=== PATIENT | male | born 1970 | race Caucasian/White ===

== ENCOUNTER 2017-10-21 19:54 | Emergency (ER) | payer SELFPAY ==
[~2017-10-21] VITALS: Ht 188 cm; Wt 90.1 kg
[2017-10-21 20:11] VITALS: BP 179/102; PULSE 60; RESP 20; TEMP 97.9; O2SAT 99
[2017-10-21] MEDS ORDERED: LORazepam 2 MG/ML VIAL IM ONE (21:30)
[2017-10-21] MEDS ORDERED: KETOROLAC TROMETHAMINE 60 MG/2 ML (IM) VIAL IM ONE (21:30)
--- NOTE | 2017-10-21 21:53 | PD ---
HPI Chief Complaint: Musculoskeletal Complaint Time Seen by Provider: 21:05 Travel History International Travel<30 days: No Contact w/Intl Traveler<30days: No Traveled to known affect area: No History of Present Illness HPI Patient comes in today complaining of bilateral lower extremity pain which IS rated at an 8/10, nonradiating, described as sharp, patient denies having any rashes or fever, in also denies any swelling to his extremities. The symptoms are very similar to his previous bouts of pain from his muscular dystrophy, but [place] does not have a primary care or a neurologist that he follows with. Allergies to penicillin which causes hives Past medical history significant for recent diagnosis of muscular dystrophy made in 2014 Primary care physician: Denies [facility] Past Medical History Musculoskeletal: Yes (muscular dystrophy) Tetanus Vaccination: > 5 Years Influenza Vaccination: No ?: Not Past Surgical History Cholecystectomy: Yes Social History Alcohol Use: Yes (rare) Tobacco Use: Yes (chews ) Substance Use: No Allergies-Medications (Allergen,Severity, Reaction): Coded Allergies: penicillin G (Verified Allergy, Unknown, Hives, 10/21/17) Review of Systems Except as stated in HPI: all other systems reviewed are Neg General / Constitutional: No: Fever Eyes: No: Visual changes HENT: No: Headaches Cardiovascular: No: Chest Pain or Discomfort Respiratory: No: Shortness of Breath Gastrointestinal: No: Abdominal Pain Genitourinary: No: Dysuria Musculoskeletal: Positive: Myalgias, Weakness (GEN) Skin: No Rash Neurologic: No: Weakness Psychiatric: No: Depression Endocrine: No: Polydipsia Hematologic/Lymphatic: No: Easy Bruising Physical Exam Narrative GENERAL: SKIN: Warm and dry. HEAD: Atraumatic. Normocephalic. EYES: Pupils equal and round. No scleral icterus. No injection or drainage. ENT: No nasal bleeding or discharge. Mucous membranes pink and moist. NECK: Trachea midline. No JVD. CARDIOVASCULAR: Regular rate and rhythm. RESPIRATORY: No accessory muscle use. Clear to auscultation. Breath sounds equal bilaterally. GASTROINTESTINAL: Abdomen soft, non-tender, nondistended. Hepatic and splenic margins not palpable. MUSCULOSKELETAL: Extremities without clubbing, cyanosis, or edema. No obvious deformities. VERY THIN LE, BUT NO STREAKING, NO CELLULITIS, NO EDEMA. NEUROLOGICAL: Awake and alert. No obvious cranial nerve deficits. Motor grossly within normal limits. Five out of 5 muscle strength in the arms and legs. Normal speech. PSYCHIATRIC: Appropriate mood and affect; insight and judgment normal. Data Data Last Documented VS Vital Signs Date Time Temp Pulse Resp B/P (MAP) Pulse Ox O2 Delivery O2 Flow Rate FiO2 10/21/17 20:11 97.9 60 20 179/102 (127) 99 Orders Orders Lorazepam Inj (Ativan Inj) (10/21/17 21:30) Ketorolac Inj (Toradol Inj) (10/21/17 21:30) MDM Medical Decision Making Medical Screen Exam Complete: Yes Emergency Medical Condition: Yes Medical Record Reviewed: Yes Differential Diagnosis SPASTICITY V MUSCLE CRAMP Narrative Course Patient on examination does not have any evidence of rash or edema or streaking. The way the pain has been described as similar to cramps bilaterally patient otherwise has great dorsalis pedis pulses. Therefore patient does not show any evidence of any vascular deficiency or insufficiency. Clinically the patient has pain related to muscular dystrophy Diagnosis Primary Impression: Bilateral leg cramps Patient Instructions: General Instructions, Leg Pain (ED) Scripts Tramadol (Ultram) 50 Mg Tab 50 MG PO Q6H Y for PAIN, #14 TAB 0 Refills Prov: Giuseppe Peng MD 10/21/17 Baclofen (Baclofen) 10 Mg Tab 10 MG PO TID, #12 TAB 0 Refills Prov: Giuseppe Peng MD 10/21/17 Disposition: 01 DISCHARGE HOME Condition: Stable Giuseppe Peng MD Oct 21, 2017 21:53
[2017-10-21] MEDS ORDERED: TRAM50 PO (22:00)
[2017-10-21] MEDS ORDERED: BACL10TA PO (22:00)
[2017-10-21 22:45] VITALS: BP 162/88; TEMP 98.2
== END 2017-10-21 22:47 | disposition home or self-care (01) ==
LOC: PHED 19:54
DX: R25.2 Cramp and spasm (principal); G71.0 Muscular dystrophy; F17.220 Nicotine dependence, chewing tobacco, uncomplicated
CPT/HCPCS: 96372; 99284; J1885; J2060